=== PATIENT | female | born 1995 | race Caucasian/White ===

== ENCOUNTER 2017-01-15 11:33 | Emergency (ER) | payer OTHER ==
[2017-01-15 11:41] VITALS: BP 146/76; PULSE 100; RESP 20; TEMP 98.7
[2017-01-15] MEDS ORDERED: IBUPROFEN 800 MG TAB PO ONE (11:45)
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
== END 2017-01-15 13:33 | disposition home or self-care (01) ==
LOC: NEPD 11:33
DX: S20.211A Contusion of right front wall of thorax, initial encounter (principal); V49.50XA Passenger injured in collision with unspecified motor vehicles in traffic accident, initial encounter; Y92.411 Interstate highway as the place of occurrence of the external cause
CPT/HCPCS: 71010; 99284